=== PATIENT | male | born 1965 | race Caucasian/White ===

== ENCOUNTER 2022-10-27 07:38 | Outpatient (CLI) | payer OTHER, SELFPAY ==
--- NOTE | 2022-10-27 07:44 | CT_ITS ---
WS: [id number] LDCT LUNG CANCER SCREENING HISTORY: HISTORY OF TOBACCO USE TECHNIQUE: Axial imaging performed from the apices to 1 cm below the costophrenic angles. Coronal and sagittal reformats are submitted with axial MIP series. All CT scans at [facility] use at least one of these dose optimization techniques: automated exposure control; mA and/or kV adjustment per patient size (includes targeted exams where dose is matched to clinical indication); or iterativ e reconstruction. DLP: 61.91 mGy.cm DIvol: Mean CTDIvol: 1.00 (mGy) COMPARISON: None available. Diagnostic quality: Satisfactory Lungs: Mild pulmonary hyperinflation. Bilateral fissural nodules are identified. Typically these are benign. The largest measures 5 mm along the RIGHT minor fissure. LEFT fissural nodule measures 4 mm. No pulmonary mass or nodule. No endobronchial lesions. Heart: Normal size heart with no pericardial effusion.. Other findings: No adenopathy. Minimal atherosclerosis aorta. Normal size pulmonary artery. No adrena l mass. Incompletely and partially visualized cystic mass in the upper abdomen. This may be a hepatic cyst extending posterior from the LEFT lobe. Mass measures 4.3 x 4.2 cm. The gallbladder in the gall bladder fossa is contracted. CT/CT lung screening 13099 IMPRESSION: LUNG-RADS: 2S-Benign Appearance or Behavior with Significant Findings FOLLOW UP: 12 Month: Continue annual screening with LDCT OTHER FINDINGS (S MODIFIER): Incompletely visualized cystic mass in the RIGHT u pper abdomen. May be an exophytic mass from the liver measures 4.3 x 4.2 cm. Th is does not appear to be the gallbladder. Recommend ultrasound evaluation of th e RIGHT upper quadrant. Alternatively this would be well visualized by CT, CT a bdomen and pelvis with oral and IV contrast.
== END 2022-10-27 07:39 | disposition home or self-care (01) ==
LOC: RAD 07:41
PROVIDERS: PCP Family Medicine; Visit Provider Family Medicine
DX: Z12.2 Encounter for screening for malignant neoplasm of respiratory organs (principal); Z87.891 Personal history of nicotine dependence; R16.0 Hepatomegaly, not elsewhere classified
CPT/HCPCS: 71271

== ENCOUNTER 2023-01-20 05:53 | Day surgery (SDC) | payer OTHER, SELFPAY ==
[2023-01-19 08:52] VITALS: BMI 23.0
[2023-01-20] VITALS (9 sets, daily range): BP systolic 132–161; BP diastolic 72–86; PULSE 56–75; RESP 16–20; TEMP 36.1–36.7; O2SAT 91–97
[2023-01-20] MEDS: sodium chloride 0.9% 1,000 ML 30 ML IV (06:30)
--- NOTE | 2023-01-20 06:47 | PM.HP ---
Providers/Chief Complaint Primary Care Provider: Deepak Farrar MD Chief Complaint: 23796 K40.90 History of Present Illness Curry Rubio is a 57 year old male Medications/Allergies Home Medications Medication Instructions Recorded Confirmed Last Taken Type albuterol sulfate 90 mcg/actuation 1 inh inhalation PRN PRN Shortness 12/08/22 01/20/23 Unknown History breath activated powder inhaler Of Breath tiotropium 2.5 mcg-olodaterol 2.5 2 puff inhalation DAILY 12/08/22 01/19/23 01/20/23 History mcg/actuation mist for inhalation (Stiolto Respimat) Allergies Allergy/AdvReac Type Severity Reaction Status Date / Time adhesive Allergy ALGY-Rash Verified 01/19/23 08:51 ciprofloxacin [From Cipro] Allergy chest pain Verified 12/08/22 15:13 PFSH Acute PFSH: Surgical History (Updated 12/08/22 @ 15:41 by Irvin Contreras DO) Hx of colonoscopy with polypectomy 11/25/22 Hx of tonsillectomy Family History Grandmother Cancer colon cancer Social History Smoking and tobacco status: current every day smoker cigarettes Vitals/I&O/Wt Last Vital Signs Temp 98.0 F 01/20/23 06:13 Pulse 62 01/20/23 06:13 Resp 17 01/20/23 06:13 BP 161/86 01/20/23 06:13 Pulse Ox 97 01/20/23 06:13 O2 Del Method Room Air 01/20/23 06:18 Weight last 48 hrs Weight 165 lb A&P Assessment and plan (1) Right inguinal hernia: (2) Umbilical hernia: Plan Laparoscopic right inguinal and umbilical hernia repairs with mesh Attestations Medical Necessity Statement*: HOME Coding Level of Care Code Acute Code for g Fwd Diagnoses Right inguinal hernia K40.90 Umbilical hernia K42.9
[2023-01-20] MEDS: ceFAZolin 2,000 MG in sodium chloride 0.9% (plus) 50 ML 100 MG IV (07:01)
--- NOTE | 2023-01-20 07:08 | ANES.PREANE2 ---
Pre-Anesthetic Assessment Height/Weight: Height 1.8 m Weight 74.843 kg Temp Pulse Resp BP Pulse Ox O2 Del Method 98.0 F 62 17 161/86 97 Room Air 01/20/23 06:13 01/20/23 06:13 01/20/23 06:13 01/20/23 06:13 01/20/23 06:13 01/20/23 06:18 Operation Date: 01/20/23 07:00 Proposed Procedures p [id number] lap right inguinal and umbilical hernia with mesh K40.90, K42.9(Right) - DO ana Machuca Laparoscopic Ventral Hernia Repair Laparoscopic Umbilical Hernia Repair(Right) - Irvin Contreras DO Familial anesthetic complications: none Was Beta Joshua taken within 24 hours: N/A Was Clonidine taken within 24 hours: N/A Last intake: Intake Last Liquid Date 01/19/23 Last Liquid Time 21:00 Last Solid Date 01/19/23 Last Solid Time 20:00 Social No alcohol and No tobacco Exam alert, oriented x 3, clear to auscultation bilaterally and regular rate & rhythm Airway Submandibular: within normal limits Cervical ROM: within normal limits Mallampati: Class II Dentition: false (upper) Pulmonary Chronic Obstructive Pulmonary Disease Anesthetic Plan ASA status: 2 Anesthesia: General Medications/Allergies Home Medications Medication Instructions Recorded Confirmed Last Taken Type albuterol sulfate 90 mcg/actuation 1 inh inhalation PRN PRN Shortness 12/08/22 01/20/23 Unknown History breath activated powder inhaler Of Breath tiotropium 2.5 mcg-olodaterol 2.5 2 puff inhalation DAILY 12/08/22 01/19/23 01/20/23 History mcg/actuation mist for inhalation (Stiolto Respimat) Allergies Allergy/AdvReac Type Severity Reaction Status Date / Time adhesive Allergy ALGY-Rash Verified 01/19/23 08:51 ciprofloxacin [From Cipro] Allergy chest pain Verified 12/08/22 15:13 Current Medications Generic Name Dose Route Start Last Admin Trade Name Freq PRN Reason Stop Dose Admin Sodium Chloride 1,000 mls @ 30 mls/hr 01/20/23 06:00 01/20/23 06:30 Sodium Chloride 0.9% IV 01/21/23 05:59 30 mls/hr .Q24H RAUL Administration Cefazolin Sodium 2,000 mg/ 50 mls @ 100 mls/hr 01/20/23 06:50 01/20/23 07:01 Sodium Chloride IV 01/20/23 07:19 100 mls/hr [employer] ONE Administration Protocol [facility] Anesthesia Surgical History (Updated 12/08/22 @ 15:41 by Irvin Contreras DO) Hx of colonoscopy with polypectomy 11/25/22 Hx of tonsillectomy Family History Grandmother Cancer colon cancer Social History Smoking and tobacco status: current every day smoker cigarettes Data Anesthesia Cardiac Studies: No Data to Display
[2023-01-20] MEDS: lidocaine-epi 2% 20 mL INJ INJECTION (07:31)
--- NOTE | 2023-01-20 08:28 | PM.OP ---
Operative Report Date of procedure: January 20, 2023 Pre-op diagnosis: Right inguinal hernia Umbilical hernia Post-op diagnosis: Right inguinal hernia Umbilical hernia Intra-abdominal mass Procedure done: Laparoscopic (TEPP) repair of right inguinal hernia with mesh Diagnostic laparoscopy Implants: Extra-large 3D max Bard mesh Surgicel x2 Specimens removed/disposition: None Surgeon: Dr. Irvin Contreras DO Anesthesia: General Estimated blood loss (mL): 5 Complications: None apparent Brief History: This very pleasant 57-year-old gentleman who presents my office with a 10-year history of right inguinal hernia and umbilical hernia. Laparoscopic repairs with mesh were indicated. The risk and benefits were explained and documented. Procedure: Patient was wheeled into the operative room and placed on the OR table in a supine position. Abdomen was inspected prepped and draped in usual sterile fashion. Time-out was performed and all present were in agreement. A 15 blade scalpel was used to make 1.2 centimeter incision infraumbilically. Combination of sharp and blunt dissection was performed down to the anterior rectus sheath which was opened sharply. The dissecting balloon was then inserted into the space of Retzius and blown up. We put the camera into the port and identified that we were in the correct space. I then placed 2 5 millimeter trocars suprapubically in the midline. I then used endokitners to bluntly dissect in the space of Retzius out laterally. A large indirect inguinal hernia was identified on the right. Blunt dissection was performed to dissect down the hernia sac until the vas deferens dove medially. An extra-large right inguinal mesh was then placed into the space of Retzius. The mesh was unrolled and tacked once medially at the pubic bone. The mesh laid out nicely over the spermatic cord. Photos were taken of the mesh laid out and the hernia sac laid underneath the mesh. I watched the hernia sac remained in place as insufflation was removed. I then injected 2% lidocaine with epinephrine into the left upper quadrant and made a 5 mm incision with a 15 blade scalpel. Veress needle was used to create 15 mm of intra-abdominal insufflation. A 5 mm trocar was then advanced into the incision under Optiview. A 12 mm trocar was then placed in the left lower quadrant in a similar fashion. A small, 1 cm umbilical hernia was identified without any contents. I then noticed a very large mass coming off of the stomach. The mass was approximately 13 cm in greatest diameter. This was a very vascular mass. I put a second 5 mm trocar into the left hemiabdomen. While gently manipulating this mass to inspect it, simply touching it caused it to bleed. There were large vascular connections to the mass. The mass appeared to be coming off of the stomach. Due to the vascularity of the mass I elected not to biopsy. There was some oozing coming from where I touch the mass. 2 pieces of Surgicel were placed on top of this and hemostasis was achieved. I decided to abandon the umbilical hernia repair because the mesh would likely have to be cut through in order to make the incision to take out this mass. Taken. I then closed the 12 mm trocar site with a Deng-Maria Isabel and 0 Vicryl suture in a [id number] fashion. Intra-abdominal insufflation was released. Incisions were closed with 4-0 Monocryl in a subcuticular interrupted fashion. Skin glue was applied. Patient tolerated the procedure well. He took the pictures out and spoke to the about my findings and how and why the umbilical hernia was not repaired. I spoke with Dr. Farrar, his primary care physician. CT chest abdomen pelvis with IV and oral contrast was ordered and referrals were put in for oncology at [facility] and surgical oncology at [facility].
[2023-01-20 10:47] LABS: Carcinoembryonic Antigen 3.3 ng/mL (0.0-4.7)
--- NOTE | 2023-01-20 15:29 | ANE.PACU2 ---
Inpatient post-anesthesia follow up: Airway intact: Yes Vital signs: Temperature 97.3 F Pulse Rate 58 Respiratory Rate 17 Blood Pressure 158/82 Pulse Oximetry 92 Oxygen Delivery Me thod Room Air Oxygen Flow Rate Fraction of Inspir ed Oxygen Hydration adequate: Yes Nausea and vomiting: No Pain level: 3 Mental status: Baseline
== END 2023-01-20 10:09 | disposition home or self-care (01) ==
PROVIDERS: PCP Family Medicine; Visit Provider Surgery
PROC: (CPT 49650; principal; 2023-01-20 07:00)
DX: K40.90 Unilateral inguinal hernia, without obstruction or gangrene, not specified as recurrent (principal); K42.9 Umbilical hernia without obstruction or gangrene; F17.210 Nicotine dependence, cigarettes, uncomplicated; R19.05 Periumbilic swelling, mass or lump
CPT/HCPCS: 49591; 49650; 82378; J0690; J1100; J1170; J1200; J1885; J2405; J2704; J2710; J3010; J3490; J7030

== ENCOUNTER 2023-01-27 15:24 | Outpatient (CLI) | payer OTHER, SELFPAY ==
--- NOTE | 2023-01-27 | US_ITS ---
WS: [id number] TESTICULAR ULTRASOUND HISTORY: HEMATOMA OF SCROTUM COMPARISON: None available. TECHNIQUE: Real-time and color Doppler imaging or utilized to perform a testicular ultrasound. History of recent RIGHT inguinal surgery. There is a large complex mass consistent with hematoma cent ered along the RIGHT inguinal canal. This complex fluid collection containing cystic and solid compon ents. Mass extends into the pelvis through the inguinal canal into the scrotum. Large amount of clott ed blood within the scrotum is displacing the RIGHT testicle but there is still blood flow to the barndon ticle. There is scrotal wall thickening and various components of the scrotal hematoma. Right testicle: 4.1 cm x 3.2 cm x 3.2 cm. Normal size and echogenicity. No mass or torsion. Normal color Doppler is present throughout. Systolic and diastolic velocities are both present. No significant hydrocele. Right epididymis: Normal epididymis with no increased vascularity. Left testicle: 4.6 cm x 3.3 cm x 2.2 cm. Normal size and echogenicity. No mass or torsion. Tunica albuginea cyst 4 x 5 x 3 mm. Normal color Doppler is present throughout. Systolic and diastolic velocities are both present. No significant hydrocele. Left epididymis: Normal epididymis with no increased vascularity. US/US scrotum [id number] IMPRESSION: 1. Very large hematoma centered along the RIGHT inguinal canal extending into the scrotum. RIGHT testicle is being significantly displaced by the large hemat timur but there is still blood flow to the testicle. 2. No testicular torsion. Notified Deepak Farrar MD at 01/27/2023 4:30 PM.
== END 2023-01-27 15:25 | disposition home or self-care (01) ==
LOC: RAD 15:27
PROVIDERS: PCP Family Medicine; Visit Provider Family Medicine
DX: M79.81 Nontraumatic hematoma of soft tissue (principal); Z98.890 Other specified postprocedural states
CPT/HCPCS: 76870

== ENCOUNTER 2023-02-02 06:02 | Outpatient (CLI) | payer OTHER, SELFPAY ==
[2023-02-02] MEDS: iohexol 350 mg/mL 500 mL Btl (per mL) PO (06:13)
--- NOTE | 2023-02-02 07:00 | CTR_ITS ---
PROCEDURE INFORMATION: Exam: CT Chest With Contrast; Diagnostic Exam date and time: 02/02/2023 7:01 AM Age: 57 years old Clinical indication: Abnormal findings; Abnormal radiologic finding of the abdomen; Radiologic exam and body structure: US liver; Abnormal radiologic exam of lung or chest; Prior surgery; Surgery date: <1 month; Surgery type: Hernia; Additional info: Abdominal mass, iv and oral TECHNIQUE: Imaging protocol: Diagnostic computed tomography of the chest with contrast. Radiation optimization: All CT scans at this facility use at least one of these dose optimization techniques: automated exposure control; mA and/or kV adjustment per patient size (includes targeted exams where dose is matched to clinical indication); or iterative reconstruction. Contrast material: OMNI 350; Contrast volume: 95 ml; Contrast route: INTRAVENOUS (IV); REPORTING DATA: Count of CT and Cardiac NM exams in prior 12 months: This patient has received [address] and 0 known cardiac nuclear medicine studies in the 12 months prior to the current study. COMPARISON: CT lung screening [id number] 10/27/2022 7:46 AM RADIATION DOSE METRICS: Total DLP (mGy-cm): 722.64 FINDINGS: Thyroid: Subcentimeter right thyroid nodules require no dedicated imaging follow-up. Lungs: No consolidation. No mass. No suspicious pulmonary nodules. Few bilateral perifissural intrapulmonary lymph nodes noted. Pleural spaces: Unremarkable. No pneumothorax. No pleural effusion. Heart: Unremarkable. No cardiomegaly. No pericardial effusion. Mediastinal space: Mild pneumomediastinum. Lymph nodes: No enlarged lymph nodes. Vasculature: Mild aortic atherosclerotic calcification without aneurysm. Bones/joints: Unremarkable. No acute fracture. Soft tissues: Unremarkable. Other findings: Air in a few of the visualized veins is most commonly related to intravenous cannulation and of no clinical significance. COMMENTS: Consistent with the [employer]'s Incidental Findings Committee white paper (J Am Sera Radiol 2015): In patients aged 35 years and older with an incidental thyroid nodule equal to or greater than 1.[address], MRI or extrathyroidal US, further evaluation with dedicated thyroid US is recommended for patients with normal life expectancy and without comorbidities. For smaller nodules without suspicious features, no further evaluation or follow up is recommended. PROCEDURE INFORMATION: Exam: CT Abdomen And Pelvis With Contrast Exam date and time: 02/02/2023 7:01 AM Age: 57 years old Clinical indication: Abnormal findings; Abnormal radiologic finding of the abdomen; Radiologic exam and body structure: US liver; Abnormal radiologic exam of lung or chest; Prior surgery; Surgery date: <1 month; Surgery type: Hernia; Additional info: Abdominal mass, iv and oral TECHNIQUE: Imaging protocol: Computed tomography of the abdomen and pelvis with contrast. Radiation optimization: All CT scans at this facility use at least one of these dose optimization techniques: automated exposure control; mA and/or kV adjustment per patient size (includes targeted exams where dose is matched to clinical indication); or iterative reconstruction. Contrast material: OMNI 350; Contrast volume: 95 ml; Contrast route: INTRAVENOUS (IV); REPORTING DATA: Count of CT and Cardiac NM exams in prior 12 months: This patient has received [address] and 0 known cardiac nuclear medicine studies in the 12 months prior to the current study. COMPARISON: 1. US scrotum [id number] 01/27/2023 4:02 PM 2. ES surgery / GI images 01/20/2023 7:02 AM 3. [place] liver [id number] 11/02/2022 9:14 AM RADIATION DOSE METRICS: Total DLP (mGy-cm): 722.64 FINDINGS: Liver: Normal without focal lesions. Gallbladder and bile ducts: Normal. No calcified stones. No ductal dilation. Pancreas: Normal without ductal dilatation. Spleen: Normal. Adrenal glands: Normal. No mass. Kidneys and ureters: Subcentimeter bilateral renal hypodensities are too small to characterize. Stomach and bowel: No dilatation. No mucosal thickening. Colonic diverticulosis without findings of diverticulitis. Appendix: Normal. Intraperitoneal space: There is a heterogeneously enhancing mass within the anterior abdomen measuring 14.2 x 5.9 x 12.8 cm (TV x AP x CC). Small hypodense component versus small fluid-filled supraumbilical herniation. Prominent surrounding vessels feed this mass. Right pelvic soft tissue mass measures 3.4 x 2.1 x 4.2 cm (AP x TV x CC), possibly representing an abnormal lymph node. This may or may not be contiguous with heterogeneous complex cystic large right inguinoscrotal mass with couple of small air foci that measures 5.2 x 4.4 x 12.0 cm (oblique TV x oblique AP x oblique CC). There are thickened internal septations. No free air, free fluid, or rim enhancing fluid collection. Vasculature: Mild systemic atherosclerotic calcification without abdominal aortic aneurysm. Lymph nodes: See Intraperitoneal space finding. Urinary bladder: Unremarkable as visualized. Reproductive: Enlarged prostate measures 6.4 cm in transverse dimension. Bones/joints: Unremarkable. No acute fracture. Soft tissues: See Intraperitoneal space finding. Midline anterior pelvis and left lower quadrant subcutaneous strandy soft tissue nodularity may be sequela of recent injection or intervention. CT/CT chest abdpel w/*[id number] IMPRESSION: Mild pneumomediastinum. IMPRESSION: 1. 14.2 cm heterogeneous anterior abdominal mass with prominent neovascularity and suspected small supraumbilical herniated component. Highly suspicious for malignancy. 2. 12 cm complex cystic right inguinoscrotal mass corresponds to hematoma on recent comparison ultrasound. Couple small air foci may be sequela from reported recent hernia repair. However, correlate for evidence of infection. 3. 4.2 cm right pelvic soft tissue mass favored to represent postsurgical change, less likely abnormal lymph node. 4. Prostatomegaly. 5. Colonic diverticulosis. COMMENTS: Consistent with the [employer]'s Incidental Findings Committee white paper (J Am Sera Radiol 2018): Any incidental renal lesion less than 1 cm or classified as too small to characterize, or any incidental cystic renal lesion characterized as simple-appearing, is likely benign. No follow-up imaging is recommended for these lesions per consensus recommendations based on imaging criteria.
[2023-02-02] MEDS: iohexol 350 mg/mL 500 mL Btl (per mL) IV (07:09)
== END 2023-02-02 06:03 | disposition home or self-care (01) ==
PROVIDERS: PCP Family Medicine; Visit Provider Surgery
DX: R19.00 Intra-abdominal and pelvic swelling, mass and lump, unspecified site (principal); N50.9 Disorder of male genital organs, unspecified; N40.0 Benign prostatic hyperplasia without lower urinary tract symptoms; K57.90 Diverticulosis of intestine, part unspecified, without perforation or abscess without bleeding; J98.2 Interstitial emphysema; Z98.890 Other specified postprocedural states
CPT/HCPCS: 71260; 74177; Q9967

== ENCOUNTER 2023-02-09 09:01 | Oncology outpatient (recurring) (ONCR) | payer OTHER, SELFPAY | END 2023-03-03 23:59 | disposition home or self-care (01) | PROVIDERS: PCP Family Medicine; Visit Provider Internal Medicine Medical Oncology | DX: Z53.9 Procedure and treatment not carried out, unspecified reason (principal) ==